=== PATIENT | male | born 1950 | race Caucasian/White ===

== ENCOUNTER 2025-05-15 08:18 | Inpatient (IN) | payer MEDICARE, OTHER ==
[~2025-05-15] VITALS: Ht 185.4 cm; Wt 97.4 kg
--- NOTE | 2025-05-15 08:33 | ELECTROCARDIOGRAPH REPORT ---
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
[2025-05-15 08:56] LABS: MEAN PLATELET VOLUME 8.9 FL (7.4-10.4); RED CELL DISTRIBUTION WIDTH 14.6 % (11.5-14.5)
[2025-05-15] MEDS ORDERED: SEMA2PEN SUBCUT (08:58)
[2025-05-15] MEDS ORDERED: ASPI81TA52 PO (08:58)
[2025-05-15] MEDS ORDERED: ATOR-2 PO (08:59)
[2025-05-15] MEDS ORDERED: CLOP75TA34 PO (08:59)
[2025-05-15] MEDS ORDERED: METO-395 PO (08:59)
[2025-05-15] MEDS ORDERED: SACU1TAB PO (09:00)
[2025-05-15] MEDS ORDERED: LEVO175T7 PO (09:03)
[2025-05-15] MEDS ORDERED: SODI650T29 PO (09:03)
[2025-05-15] MEDS ORDERED: EZET10TA80 PO (09:03)
[2025-05-15] MEDS ORDERED: FOLI0.4T6 PO (09:03)
[2025-05-15] MEDS ORDERED: CHOL500044 PO (09:04)
[2025-05-15] MEDS ORDERED: CYAN250010 PO (09:04)
--- NOTE | 2025-05-15 09:04 | RADIOLOGY REPORT ---
EXAM: DI CHEST,SINGLE VIEW Indication: CP Technique: Single frontal view of the chest was obtained Comparison: XR CHEST 1 VIEW on DOS: 01/03/25 FINDINGS: Lines and Tubes: None Lungs: Mild pulmonary edema. Trace right pleural effusion. Left costophrenic angle is collimated from field of view. No pneumothorax. Cardiomediastinal contours: Cardiomegaly. Bones: No acute osseous abnormality. IMPRESSION: Cardiomegaly with mild pulmonary edema. Trace right pleural effusion.
[2025-05-15] MEDS ORDERED: SODI10PO PO (09:05)
[2025-05-15] MEDS ORDERED: ALLO100T PO (09:05)
[2025-05-15 09:13] LABS: CREATININE 4.39 MG/DL (0.60-1.10); TOTAL CARBON DIOXIDE 24.0 MMOL/L (24-32); eCRCL 17 ML/MIN; eGFR 13 ML/MIN
--- NOTE | 2025-05-15 09:16 | Physician Documentation ---
Addendum CHIEF COMPLAINT/HPI: The patient is a 74-year-old male who underwent TAVR and stenting in December 2024 at [facility]. He reports that at that time his ejection fraction was between 40-45%. He has developed shortness of breath three days ago. He was seen at Dr. Cuellar's office by Geni yesterday and today. She attempted to increase his metoprolol 50 mg twice daily. He had 50 mg last night and again this morning. She saw him again today and did an echocardiogram which showed an ejection fraction of 10-15%. EKG revealed a tachycardia which she was not able to distinguish between AF RVR versus SVT. The patient is on Plavix and aspirin but no other blood thinners. He denies chest pain. REVIEW OF SYSTEMS: Constitutional: Denies chills, fatigue, fever, weight gain or weight loss. HEENT: Denies hearing loss, sinus pressure or visual changes. Respiratory: Shortness of breath Cardiovascular: Denies chest pain, pain while walking (claudication), edema or palpitations. Gastrointestinal: Denies abdominal pain, blood in stool, constipation, diarrhea, heartburn, loss of appetite, nausea or vomiting. Genitourinary: Denies painful urination (dysuria), excessive amount of urine (polyuria) or urinary frequency. Metabolic/Endocrine: Denies cold intolerance, heat intolerance, excessive thirst (polydipsia) or excessive hunger (polyphagia). Neurological: Denies dizziness, extremity numbness, extremity weakness, headaches, seizures or tremors. Psychiatric: Denies anxiety or depression. Integumentary: Denies breast discharge, breast lump, hives, mole change(s), rash or skin lesion. Musculoskeletal: Denies back pain, joint pain, joint swelling or neck pain. Hematologic: Denies easily bleeding, easily bruises, lymphedema or issues with blood clots. Immunologic: Denies food allergies or seasonal allergies. PHYSICAL EXAMINATION: Vitals and nursing note reviewed. Constitutional: General: Patient is awake, alert, oriented x 4 in no acute distress and well appearing. Speech is clear and lucid. Appearance: Normal appearance. Patient is not ill-appearing, toxic-appearing or diaphoretic. HENT: Head: Normocephalic and atraumatic. Mouth: Mucous membranes are moist. Pharynx: Oropharynx is clear. Eyes: General: No scleral icterus. Extraocular Movements: Extraocular movements intact. Pupils: Pupils are equal, round, and reactive to light. Neck: Supple, no Kernig or Brudzinski sign. Cardiovascular: Rate and Rhythm: Tachycardia. Heart sounds: No murmur heard. Pulmonary: Effort: No respiratory distress. Breath sounds: No wheezing, rhonchi or rales. Abdominal: General: There is no distension. Palpations: There is no fluid wave, hepatomegaly or mass. Tenderness: There is no abdominal tenderness. There is no guarding. Musculoskeletal: General: No swelling or deformity. Skin: Coloration: Skin is not jaundiced. Findings: No erythema or rash. Neurological: Mental Status: Patient is alert. MEDICAL DECISION MAKING: This 74-year-old man presents with shortness of breath, ejection fraction of 10- 15% and tachycardia. I did trial him with diltiazem 10 mg which did not slow him down. I will be starting amiodarone bolus and drip. He will require admission. Departure Disposition: ADMITTED INPATIENT Admitted to Inpatient Unit: to hospitalist Admission Level of Care: PCU with Tele Impression: Primary Impression: Shortness of breath Additional Impression: Tachycardia Condition: ANGELA Pinto MD May 15, 2025 09:16
[2025-05-15] MEDS: diltiazem 5mg/ml 5ml inj. IV ONE ×2 (09:36→10:16)
[2025-05-15 09:55] LABS: PRO BRAIN NATRIURETIC PEPTIDE > 30000 PG/ML (0-125)
[2025-05-15] MEDS ORDERED: potassium Cl 20 mEq SR tablet PO PRN ×2 (10:30)
[2025-05-15] MEDS ORDERED: ondansetron/PF 4mg/2ml inj IV PRN (10:30)
[2025-05-15] MEDS ORDERED: magnesium sulf-water 2g/50mL 50 ML IV PRN (10:30)
[2025-05-15] MEDS ORDERED: amiodarone 150mg/dext, iso-os 100 ML IV ONE (10:30)
[2025-05-15] MEDS ORDERED: magnesium sulf-water 4G/100mL 100 ML IV PRN (10:30)
[2025-05-15] MEDS ORDERED: amiodarone/D5 360MG/200ML BAG 200 ML IV SCH (10:30)
[2025-05-15] MEDS ORDERED: magnesium Cl slow-release 64mg tablet PO PRN (10:30)
[2025-05-15] MEDS ORDERED: potassium Cl 40MEQ/1/2NS 520ml 520 ML IV PRN (10:30)
--- NOTE | 2025-05-15 10:47 | ELECTROCARDIOGRAPH REPORT ---
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
[2025-05-15] MEDS: amiodarone 150mg/dext, iso-os 100 ML IV ONE (11:22)
[2025-05-15] MEDS: amiodarone/D5 360MG/200ML BAG 200 ML IV SCH (11:35)
[2025-05-15] MEDS: metoprolol tartrate 1mg/ml inj IV ONE (12:20)
--- NOTE | 2025-05-15 16:39 | CONSULTATION REPORT ---
History of Present Illness Providers to CC CC: MAGI KELLY MD ~ Reason for Admit\Admit Dx: Cardiology consultation Refering MD: Dr. Onofre History of Present Illness Patient with past medical history significant for severe aortic stenosis, coronary artery disease status post PCI to an unknown coronary artery January 2025. Also underwent TAVR at that time. Had longstanding chronic kidney disease stage 4, hypertension, hyperlipidemia. He has had systolic heart failure. States that his previous LVEF was around 40-45%. He has experienced a sudden onset of increased shortness for breath over the past three days. He went to his parts product analyst who did a stat echocardiogram. Found to have an LVEF of 10-15% and was sent to the hospital for further evaluation and management. Allergies: Coded Allergies: No Known Allergies (Unverified , 05/15/25) Home Medications Home Medications Active Reported Zyloprim* (Allopurinol) 100 Mg Tablet 1 Tab PO EVERY OTHER DAY Lokelma (Sodium Zirconium Cyclosilicate) 10 Gram Powd.pack 1 Pkt PO DAILY Vitamin D3 (Cholecalciferol (Vitamin D3)) 125 Mcg (5000 Unit) Tablet 1 Tab PO DAILY 30 Days Vitamin B12 (Cyanocobalamin (Vitamin B-12)) 2,500 Mcg Tablet 500 Mcg PO DAILY 30 Days Folic Acid* (Folic Acid) 0.4 Mg Tablet 1 Tab PO DAILY Levothyroxine Sodium 175 Mcg Tablet 1 Tab PO EVERY OTHER DAY every other day Antacid (Sodium Bicarbonate) 650 Mg Tablet 1 Tab PO TID Ezetimibe 10 Mg Tablet 1 Tab PO DAILY Entresto 24 mg-26 mg Tablet (Sacubitril/Valsartan) 24 Mg-26 Mg Tablet 1 Tab PO Q12H 30 Days Clopidogrel (Clopidogrel Bisulfate) 75 Mg Tablet 1 Tab PO DAILY 30 Days Do not stop medication unless instructed by prescriber. Metoprolol Succinate 25 Mg Tab.sr.24h 2 Tab PO BID Atorvastatin Calcium 80 Mg Tablet 1 Tab PO HS Aspirin EC (Aspirin) 81 Mg Tablet.dr 1 Tab PO DAILY 30 Days Ozempic (Semaglutide) 2 Mg/0.75 Ml (8 Mg/3 Ml) Pen.injctr 2 Mg SUBCUT MONDAY Past Medical History Medical History Comment Heart failure with mid-range ejection fraction around 45% previously Hypertension Hyperlipidemia Chronic kidney disease stage 4 Severe aortic stenosis status post TAVR Coronary artery disease status post PCI January 2025 on Plavix and aspirin--anatomy unknown but probable LAD Hepatitis-C treated Diabetes mellitus Ozempic Past Surgical History Surgical History Comment TAVR procedure PCI Orthopedic surgery Past Social History Social History Comment Lives with . Independent daily living. Physical Exam Last Vital Signs Recorded: RN Vital Signs have been reviewed: Yes, Temperature: 98.4, Source: Oral, Heart Rate: 112, Respiratory Rate: 16, BP: 127/103, Pulse Oximetry: 98, Weight: 97.400 Physical Exam General: Awake, alert, oriented. No apparent distress Respiratory: Lungs are clear end diminished in the bases bilaterally. Speaking in full sentences. Chest: Normal shape and size. No accessory muscle use. Cardiovascular: Irregularly irregular. Tachycardic. Gastrointestinal: Abdomen is soft. Nontender to palpation. Bowel sounds present. Extremities: No lower extremity edema, cyanosis or clubbing. Neurologic: Alert and oriented x4. Nonfocal Psychiatric: Normal mood and affect. Skin: Normal color. Warm and dry. Review of Systems Constitutional: Denies: chills, fever Respiratory: Reports: shortness of breath, SOB with exertion Cardiovascular: Reports: no symptoms reported; Denies: chest pain, left arm pain, syncope Gastrointestinal: Denies: abdominal pain, nausea, vomiting Neurological: Reports: no symptoms reported Musculoskeletal: Reports: no symptoms reported Integumentary: Reports: no symptoms reported Allergic/Immunologic: Reports: no symptoms reported Hematologic/Lymphatic: Reports: no symptoms reported Endocrine: Reports: no symptoms reported Psychiatric: Reports: no symptoms reported Results EKG EKG Initial EKG looks like atrial flutter with rapid ventricular response. Now telemetry atrial fibrillation with rapid ventricular response. Echocardiogram Echocardiogram Preliminary echocardiogram done at Dr. Leelee Mccray's office shows an LVEF of 10-15%. TAVR valve is well seated with no perivalvular leak. Ascending aorta measures 4.9 cm. RV [id number] reduced systolic function. Normal size. RVSP 42 mm of mercury. Diagram Lab Result Diagram: 05/15/2584205/15/25842 Assessment/Plan Additional Plan Patient presented with increased shortness for breath. The following is his problem list: Acute on chronic heart failure with reduced ejection fraction. 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 We will increase as needed for heart rate control. --on Entresto as an outpatient Atrial fibrillation with rapid ventricular response --on an amiodarone drip --rate control as noted above --that is Vasc is four --recommend Eliquis 5 mg b.i.d. Chronic kidney disease with the acute kidney injury Per baseline creatinine about 3.5. --careful monitoring of History of coronary artery disease --continue Plavix, aspirin, statin Diabetes mellitus type 2 On Ozempic Hypothyroidism --on levothyroxine --TSH 0.[address] Nelson Luciano who is in agreement with this plan. Supervising MD Supervising Physician: ILANA Bailey NP May 15, 2025 16:39
[2025-05-15 18:00] VITALS: BP 137/103; PULSE 123; RESP 11; TEMP 97.8; O2SAT 96
[2025-05-15 20:00] VITALS: BP 159/120; PULSE 123; RESP 14; RESP 25; O2SAT 96
--- NOTE | 2025-05-15 20:00 | HISTORY AND PHYSICAL ---
History & Physical Providers to CC ~ History of Present Illness Reason for Admit\Complaint: Abnormal echocardiogram results History of Present Illness The patient is a 74-year-old male who underwent TAVR and stenting in December 2024 at [facility]. He reports that at that time his ejection fraction was between 40-45%. He has developed shortness of breath three days ago. He was seen at Dr. Cuellar's office by Geni yesterday and today. She attempted to increase his metoprolol 50 mg twice daily. He had 50 mg last night and again this morning. She saw him again today and did an echocardiogram which showed an ejection fraction of 10-15%. EKG revealed a tachycardia which she was not able to distinguish between AF RVR versus SVT. The patient is on Plavix and aspirin but no other blood thinners. He denies chest pain. Patient admitted that he does drink vodka on regular basis denied use of any tobacco or any recreational drugs. As per patient's patient has chronic kidney disease which is not new last GFR was 16. Patient denies any other symptoms no other aggravating or exacerbating factors Allergies: Coded Allergies: No Known Allergies (Unverified , 05/15/25) Home Medications Home Medications Active Reported Zyloprim* (Allopurinol) 100 Mg Tablet 1 Tab PO EVERY OTHER DAY Lokelma (Sodium Zirconium Cyclosilicate) 10 Gram Powd.pack 1 Pkt PO DAILY Vitamin D3 (Cholecalciferol (Vitamin D3)) 125 Mcg (5000 Unit) Tablet 1 Tab PO DAILY 30 Days Vitamin B12 (Cyanocobalamin (Vitamin B-12)) 2,500 Mcg Tablet 500 Mcg PO DAILY 30 Days Folic Acid* (Folic Acid) 0.4 Mg Tablet 1 Tab PO DAILY Levothyroxine Sodium 175 Mcg Tablet 1 Tab PO EVERY OTHER DAY every other day Antacid (Sodium Bicarbonate) 650 Mg Tablet 1 Tab PO TID Ezetimibe 10 Mg Tablet 1 Tab PO DAILY Entresto 24 mg-26 mg Tablet (Sacubitril/Valsartan) 24 Mg-26 Mg Tablet 1 Tab PO Q12H 30 Days Clopidogrel (Clopidogrel Bisulfate) 75 Mg Tablet 1 Tab PO DAILY 30 Days Do not stop medication unless instructed by prescriber. Metoprolol Succinate 25 Mg Tab.sr.24h 2 Tab PO BID Atorvastatin Calcium 80 Mg Tablet 1 Tab PO HS Aspirin EC (Aspirin) 81 Mg Tablet.dr 1 Tab PO DAILY 30 Days Ozempic (Semaglutide) 2 Mg/0.75 Ml (8 Mg/3 Ml) Pen.injctr 2 Mg SUBCUT MONDAY Past Medical History Past Medical History Heart failure with mid-range ejection fraction around 45% previously Hypertension Hyperlipidemia Chronic kidney disease stage 4 Severe aortic stenosis status post TAVR Coronary artery disease status post PCI January 2025 on Plavix and aspirin--anatomy unknown but probable LAD Hepatitis-C treated Diabetes mellitus Ozempic Past Surgical History Surgical History Comment TAVR procedure PCI Orthopedic surgery Past Social History Social History Comment Lives with . Independent daily living. ROS ROS Review of system as mentioned above in HPI rest of the review of system unremarkable Exam Vitals: Vital Signs Date Time Temp Pulse Resp B/P (MAP) Pulse Ox O2 Delivery O2 Flow Rate FiO2 05/15/25 14:57 112 16 127/103 (111) 98 0 05/15/25 13:20 98.4 General: General-patient not in any acute distress, alert awake oriented, chronically ill-appearing HEENT-atraumatic normocephalic, neck supple without elevated JVD, no thyromegaly or carotid bruit. No lymphadenopathy bilaterally. Eyes-no icterus or pallor seen in eyes Chest-decreased breath sounds to auscultation bilaterally over 2/3 of the lung, we will do listen lung sounds over upper lungs. breathing nonlabored no tachypnea, no wheezing, no crepitation, no crackles. Heart-S1-S2 normal, regular heart rate no murmur Abdomen bowel sounds positive on auscultation, soft nondistended nontender no guarding, no rigidity Skin no active skin rash Neurology-grossly intact, nonfocal alert awake oriented Extremity- trace pedal edema able to move all 4 extremities Psychiatry - patient is not confused or agitated cooperated during physical examination Diagnostic Data Last Recorded Lab Results: 05/15/2584205/15/25842 Additional Plan The patient is a 74-year-old male who underwent TAVR and stenting in December 2024 at [facility]. He reports that at that time his ejection fraction was between 40-45%. He has developed shortness of breath three days ago. He was seen at Dr. Cuellar's office by Geni yesterday and today. She attempted to increase his metoprolol 50 mg twice daily. He had 50 mg last night and again this morning. She saw him again today and did an echocardiogram which showed an ejection fraction of 10-15%. # acute on chronic systolic congestive heart failure- Cardiology consultation requested from Dr. Pablo Luciano and Karina evaluated the patient today. Appreciate cardiology input for this patient's case, they recommended to start metoprolol succinate 100 mg once daily. He is on Entresto in outpatient setting # atrial fibrillation with RVR-on amiodarone drip we will continue to monitor heart rate and plan to start Eliquis 5 mg twice a day # coronary artery disease on Plavix aspirin and statin in outpatient setting # acute kidney injury on chronic kidney disease stage 4- patient follows with Dr. Dominguez in outpatient setting. Nephrology consultation requested from Dr. Elliott who we will plan to see the patient tomorrow # type 2 diabetes- hemoglobin A1c ordered, on Ozempic in outpatient setting which we are going to hold. Started on hypo and hyperglycemic protocol # hypothyroidism-on levothyroxine TSH 0.10. Patient needs lower dose of levothyroxine and repeat free TSH testing needed in 6-8 weeks in outpatient setting. We will continue to monitor patient's labs and vitals closely . Needs physical therapy evaluation before discharge . Code status discussed with the patient patient wishes full code Time spent in discussing code status 16 minutes. We will do home medication reconciliation once updated in electronic by nursing staff or pharmacist. Further management depending on response to treatment and as per recommendation by Nephrology and activity therapy specialist I will continue to follow patient in a.m. Date of Service: May 15, 2025 Billing Provider: KEENA ROBLES MD Common Visit Codes: 14155-GNDIXJO INP/OBS CARE (HIGH) Secondary Visit Codes: 90176-KXLSAOLO CARE PLAN 30 MINUTES KEENA ROBLES MD May 15, 2025 20:00
[2025-05-15] MEDS ORDERED: glucagon, human recombinant 1mg kit SUBCUT PRN (20:05)
[2025-05-15] MEDS ORDERED: dextrose 50%-water 50ml dispensing syringe IV PRN ×2 (20:05)
[2025-05-15] MEDS ORDERED: DEXTROSE 15 GM of carb/4 tabs (each vial/BOTTLE has 4 tablets) PO PRN ×2 (20:05)
--- NOTE | 2025-05-15 20:20 | PROGRESS NOTE ---
Progress Note Dictate Providers to CC ~ Progress Note: Please see dictated note. Pt and very well known to me, she was my prior admitting officer and I've followed him for 25+ years. STEVEN (?) due to decreased perfusion to rate-related Afib LV dysfunction. Dr Franklin Luciano and Polo mobley. Control Afib f/u spot labs and echocor. Antibiotic Ordered?: No Objective Vitals Vital Signs Date Time Temp Pulse Resp B/P (MAP) Pulse Ox O2 Delivery O2 Flow Rate FiO2 05/15/25 14:57 112 16 127/103 (111) 98 0 05/15/25 13:20 98.4 Lab Results: 05/15/25 0843 05/15/25 0843 SHAZIA BAIN MD May 15, 2025 20:20
[2025-05-15] MEDS: heparin, porcine 5000 units/ml vial SQ SCH (20:44)
[2025-05-15] MEDS: metoprolol succinate 25mg (24-HOUR) SR. Tablet PO SCH (20:44)
[2025-05-15] MEDS: INSULIN LISPRO 100 UNIT/ML INSULN.PEN MULTI-DOSE SQ SCH (21:00)
[2025-05-15 22:00] VITALS: BP 131/101; PULSE 123; RESP 17; TEMP 97.8; O2SAT 97
[2025-05-16] VITALS (10 sets, daily range): BP systolic 117–138; BP diastolic 92–109; PULSE 113–121; RESP 17–22; TEMP 97.4–97.8; O2SAT 95–98
[2025-05-16 04:32] LABS: OSMOLALITY UA 257.0 MOSM/K (50-1400)
[2025-05-16 04:38] LABS: LEUKOCYTE ESTERASE ,URINE NEGATIVE (Neg); NITRITES, URINE NEGATIVE (Neg); OCCULT BLOOD,URINE SMALL (Neg)
[2025-05-16 04:41] LABS: CREATININE,URINE RANDOM 43.0 MG/DL; TOTAL PROTEIN,URINE RANDOM 233.2 MG/DL; UA UREA RANDOM 298.0 MG/DL
[2025-05-16 04:43] LABS: UA COLLECTION TYPE NON-SPECIFIED
[2025-05-16 04:44] LABS: AMORPHOUS URATES 1+; SQUAMOUS EPITHELIAL CELL,UR NONE SEEN /LPF (FEW)
[2025-05-16] MEDS: heparin, porcine 5000 units/ml vial SQ SCH (06:13)
[2025-05-16 07:44] LABS: MEAN PLATELET VOLUME 8.8 FL (7.4-10.4); RED CELL DISTRIBUTION WIDTH 14.1 % (11.5-14.5)
[2025-05-16] MEDS: SODIUM ZIRCONIUM CYCLOSILICATE 10 GM POWD.PACK PO SCH (07:48)
[2025-05-16] MEDS: sacubitril/valsartan 24mg-26mg tablet PO SCH (07:48)
[2025-05-16] MEDS: aspirin 81mg, enteric-coated 1 TAB TABLET.DR PO SCH (07:48)
[2025-05-16 07:58] LABS: CREATININE 4.29 MG/DL (0.60-1.10); TOTAL CARBON DIOXIDE 21.8 MMOL/L (24-32); eCRCL 18 ML/MIN; eGFR 14 ML/MIN
--- NOTE | 2025-05-16 14:21 | CONSULTATION REPORT - RESIDENT ---
Consult Providers to CC Resident Creating Document: CHACORTA TONEY RES History of Present Illness Reason for Admit\Complaint: CHF exacerbation History of Present Illness This is a 74-year-old patient with a history of severe aortic stenosis, CAD s/p PCI in 01/29, TAVR, CHF with mid-range ejection fraction CKD stage 4, hypertension, hyperlipidemia, diabetes mellitus. He is a patient of Dr. Cuellar, his previous ejection fraction was about 40-45%, experienced sudden onset of increased shortness of breadth with a past three days, he went to Dr. Cuellar's office and got a stat echocardiogram done which showed an ejection fraction of 10-15% and was sent to the hospital for further evaluation. He is a known CKD patient, follows up at [facility]. His most recent labs from [facility], collected on 05/08/2025 showed a creatinine of 3.75, BUN 39, GFR 16, sodium 144, potassium 4.2, bicarb 21, phosphorus 3.8, calcium 9.0, albumin 3.6, total urine protein 861.2, UPCR 6282, hemoglobin 13.0. STEVEN likely due to decreased perfusion to rate-related Afib LV dysfunction. During this admission creatinine is 4.39, BUN 53, bicarb 21.8, normal potassium. Allergies: Coded Allergies: No Known Allergies (Unverified , 05/15/25) Home Medications Home Medications Active Reported Zyloprim* (Allopurinol) 100 Mg Tablet 1 Tab PO EVERY OTHER DAY Lokelma (Sodium Zirconium Cyclosilicate) 10 Gram Powd.pack 1 Pkt PO DAILY Vitamin D3 (Cholecalciferol (Vitamin D3)) 125 Mcg (5000 Unit) Tablet 1 Tab PO DAILY 30 Days Vitamin B12 (Cyanocobalamin (Vitamin B-12)) 2,500 Mcg Tablet 500 Mcg PO DAILY 30 Days Folic Acid* (Folic Acid) 0.4 Mg Tablet 1 Tab PO DAILY Antacid (Sodium Bicarbonate) 650 Mg Tablet 1 Tab PO TID Ezetimibe 10 Mg Tablet 1 Tab PO DAILY Entresto 24 mg-26 mg Tablet (Sacubitril/Valsartan) 24 Mg-26 Mg Tablet 1 Tab PO Q12H 30 Days Clopidogrel (Clopidogrel Bisulfate) 75 Mg Tablet 1 Tab PO DAILY 30 Days Do not stop medication unless instructed by prescriber. Metoprolol Succinate 25 Mg Tab.sr.24h 2 Tab PO BID Atorvastatin Calcium 80 Mg Tablet 1 Tab PO HS Aspirin EC (Aspirin) 81 Mg Tablet.dr 1 Tab PO DAILY 30 Days Ozempic (Semaglutide) 2 Mg/0.75 Ml (8 Mg/3 Ml) Pen.injctr 2 Mg SUBCUT MONDAY Past Medical History Past Medical History Heart failure with mid-range ejection fraction around 45% previously Hypertension Hyperlipidemia Chronic kidney disease stage 4 Severe aortic stenosis status post TAVR Coronary artery disease status post PCI January 2025 on Plavix and aspirin--anatomy unknown but probable LAD Hepatitis-C treated Diabetes mellitus Ozempic Past Surgical History Surgical History Comment TAVR procedure PCI Orthopedic surgery Past Social History Social History Comment Lives with . Independent daily living. Exam Vitals: Vital Signs Date Time Temp Pulse Resp B/P (MAP) Pulse Ox O2 Delivery O2 Flow Rate FiO2 05/16/25 11:00 97.4 117 20 117/92 (100) 97 Room Air 05/15/25 20:00 0.0 General: General: Awake, alert, oriented. No apparent distress Respiratory: Lungs are clear end diminished in the bases bilaterally. Speaking in full sentences. Chest: Normal shape and size. No accessory muscle use. Cardiovascular: Irregularly irregular. Tachycardic. Gastrointestinal: Abdomen is soft. Nontender to palpation. Bowel sounds present. Extremities: No lower extremity edema, cyanosis or clubbing. Neurologic: Alert and oriented x4. Nonfocal Psychiatric: Normal mood and affect. Skin: Normal color. Warm and dry. Diagnostic Data Last Recorded Lab Results: 05/16/25 0647 05/16/25 0647 Diagnostic Data: Karina's input much appreciated. We need to control rate and get into sinus for atrial kick. I ok'd entresto for CHF and hopefully to reduce proteinuria. Spot studies urea urine/serum 298/53 = 6:1 creat u/s = 43/4.29 = 10:1 Cur/Ccr = .6 = not prerenal. urine pro/cr = 233/43 = 7:1 x estimated Cr production 1.5 gm = 10.5 gm = massive. If he remains in Afib, consider amiodarone. Additional Plan Assessment This is a 74-year-old patient with a history of severe aortic stenosis, CAD s/p PCI in 01/29, TAVR, CHF with mid-range ejection fraction CKD stage 4, hypertension, hyperlipidemia, diabetes mellitus. He is a patient of Dr. Cuellar, his previous ejection fraction was about 40-45%, experienced sudden onset of increased shortness of breadth with a past three days, he went to Dr. Cuellar's office and got a stat echocardiogram done which showed an ejection fraction of 10-15% and was sent to the hospital for further evaluation. He is a known CKD patient, follows up at [facility]. His most recent labs from [facility], collected on 05/08/2025 showed a creatinine of 3.75, BUN 39, GFR 16, sodium 144, potassium 4.2, bicarb 21, phosphorus 3.8, calcium 9.0, albumin 3.6, total urine protein 861.2, UPCR 6282, hemoglobin 13.0. During this admission creatinine is 4.39, BUN 53, bicarb 21.8, normal potassium. STEVEN likely due to decreased perfusion to rate-related Afib LV dysfunction. Plan STEVEN on CKD stage 4. Likely secondary to decreased perfusion from rate related AFib left ventricular dysphonia Creatinine today 4.29, BUN 53, bicarb 21.8, Baseline creatinine, 3.75 on 05/08/2025 Urine sodium 65, Fe urea- 56.1 . Random urine protein 233.2. Plan Monitor daily urine electrolytes Strict I&Os Daily weight measurements. Avoid bilateral upper extremity IV lines, no Bean's, no PICC line Acute on chronic CHF exacerbation with reduced ejection fraction likely secondary to rate related cardiomyopathy. Atrial fibrillation with rapid ventricular response On metoprolol succinate 100 mg On amiodarone drip Eliquis 5 mg b.i.d. History of CAD s/p PCI Continue aspirin, statin, Plavix. Chacorta toney M.D PGY2 Nephrology Resident Date of Service: May 16, 2025 Billing Provider: SHAZIA BAIN MD, PRAVAHIKA, RES May 16, 2025 14:21 SHAZIA BAIN MD May 16, 2025 23:16
--- NOTE | 2025-05-16 17:39 | PROGRESS NOTE ---
Progress Note Cardiology Providers to CC ~ Subjective Subjective Patient is having shortness for breath when he lays in bed that feels well in a chair. He also denies significant dyspnea on exertion when walking in the hallways. Heart rate remains elevated. Atrial flutter on telemetry. Objective Result Diagram: 05/16/2564605/16/25646 Objective General: Awake, alert, oriented. No apparent distress Neck: Supple. Normal range of motion. Respiratory: Lungs are clear diminished in the bases bilaterally. Chest: Normal shape and size. No accessory muscle use. Cardiovascular: Irregularly irregular. Tachycardic. S1-S2. No murmur, gallop, rub. Extremities: No lower extremity edema, cyanosis or clubbing. Neurologic: Alert and oriented x4. Nonfocal Psychiatric: Normal mood and affect. Skin: Normal color. Warm and dry. Problem\Assessment\Plan Additional Plan Patient presented with increased shortness for breath. The following is his problem list: Acute on chronic heart failure with reduced ejection fraction. 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 We will increase to 100 mg t.i.d.. May increase up to 400 mg total per day --continue Entresto --avoid SGLT2i/MRA given kidney function --he continues to have significant dyspnea. Therefore, continue Lasix. Strict intake and output. Discussed with nursing. Atrial fibrillation with rapid ventricular response --on an amiodarone drip --rate control as noted above --that is Vasc is four --recommend Eliquis 5 mg b.i.d. Chronic kidney disease with the acute kidney injury Per baseline creatinine about 3.5. Discussed with on-call occupational therapist assistants Dr. Elliott. Appreciate his recommendations. History of coronary artery disease with recent PCI of the presumed LAD --continue Plavix, aspirin, statin Diabetes mellitus type 2 On Ozempic Hypothyroidism --on levothyroxine --TSH 0.[address] Nelson Luciano who is in agreement with this plan. We will up titrate metoprolol for rate control. If any further cardiology needs please contact Dr. Luciano directly for weekend coverage. Supervising Physician: ILANA Bailey NP May 16, 2025 17:39
[2025-05-16] MEDS: amiodarone/D5 360MG/200ML BAG 200 ML IV SCH (17:40)
[2025-05-16] MEDS: metoprolol succinate 25mg (24-HOUR) SR. Tablet PO SCH (19:32)
--- NOTE | 2025-05-16 19:55 | PROGRESS NOTE ---
Daily Progress Note Providers to CC ~ Antibiotic Timeout Antibiotic Ordered?: No Subjective Patient was feeling short of breaths and not well when he was trying to sit on the edge of the bed. present at bedside Objective Vital Signs Date Time Temp Pulse Resp B/P (MAP) Pulse Ox O2 Delivery O2 Flow Rate FiO2 05/16/25 15:00 97.5 113 22 121/95 (104) 97 05/16/25 11:00 Room Air 05/15/25 20:00 0.0 Result Diagram: 05/16/25 0647 05/16/25 0647 General-patient not in any acute distress, alert awake oriented, chronically ill-appearing HEENT-atraumatic normocephalic, neck supple without elevated JVD, no thyromegaly or carotid bruit. No lymphadenopathy bilaterally. Eyes-no icterus or pallor seen in eyes Chest-decreased breath sounds to auscultation bilaterally over 2/3 of the lung, we will do listen lung sounds over upper lungs. breathing nonlabored no tachypnea, no wheezing, no crepitation, no crackles. Heart-S1-S2 normal, regular heart rate no murmur Abdomen bowel sounds positive on auscultation, soft nondistended nontender no guarding, no rigidity Skin no active skin rash Neurology-grossly intact, nonfocal alert awake oriented Extremity- trace pedal edema able to move all 4 extremities Psychiatry - patient is not confused or agitated cooperated during physical examination Problem\Assessment\Plan The patient is a 74-year-old male who underwent TAVR and stenting in December 2024 at [facility]. He reports that at that time his ejection fraction was between 40-45%. He has developed shortness of breath three days ago. He was seen at Dr. Cuellar's office by Geni yesterday and today. She attempted to increase his metoprolol 50 mg twice daily. He had 50 mg last night and again this morning. She saw him again today and did an echocardiogram which showed an ejection fraction of 10-15%. # acute on chronic systolic congestive heart failure- Cardiology consultation requested from Dr. Pablo Luciano and Karina evaluated the patient today. Appreciate cardiology input for this patient's case, they recommended to start metoprolol succinate 100 mg t.i.d. and Entresto # atrial fibrillation with RVR-on amiodarone drip we will continue to monitor heart rate and plan to start Eliquis 5 mg twice a day # coronary artery disease on Plavix aspirin and statin in outpatient setting # acute kidney injury on chronic kidney disease stage 4- patient follows with Dr. Dominguez in outpatient setting. Nephrology consultation requested from Dr. Elliott who evaluated the patient today, we will follow the recommendation # type 2 diabetes- hemoglobin A1c ordered, on Ozempic in outpatient setting which we are going to hold. Started on hypo and hyperglycemic protocol # hypothyroidism-on levothyroxine TSH 0.10. Patient needs lower dose of levothyroxine and repeat free TSH testing needed in 6-8 weeks in outpatient setting. # Code status discussed with the patient patient wishes full code We will continue to monitor patient's labs and vitals closely . Needs physical therapy evaluation before discharge . home medication reconciliation once updated in electronic records. Further management depending on response to treatment and as per recommendation by Nephrology and control systems specialist I will continue to follow patient in a.m. Date of Service: May 16, 2025 Billing Provider: KEENA ROBLES MD Common Visit Codes: [id number] INP/OBS CARE(HIGH) KEENA ROBLES MD May 16, 2025 19:55
[2025-05-16 23:18] LABS: CREATININE,URINE RANDOM 39.0 MG/DL; UA UREA RANDOM 238.0 MG/DL
[2025-05-16 23:33] LABS: OSMOLALITY UA 199.0 MOSM/K (50-1400)
[2025-05-17] VITALS (21 sets, daily range): BP systolic 104–151; BP diastolic 79–115; PULSE 67–113; RESP 7–25; TEMP 97–99; O2SAT 95–100
[2025-05-17 06:54] LABS: MEAN PLATELET VOLUME 8.8 FL (7.4-10.4); RED CELL DISTRIBUTION WIDTH 14.3 % (11.5-14.5)
--- NOTE | 2025-05-17 06:56 | CONSULTATION ---
DATE OF CONSULTATION: 05/15/2025 DICTATING PHYSICIAN: Homero Elliott MD RENAL AND INTENSIVE CARE CONSULTATION REASON FOR CONSULTATION: Chronic glomerulonephritis. HISTORY OF PRESENT ILLNESS: He had hepatitis C that responded very well to treatment with improvement in renal function. Once I finally found out that he was in the hospital and had been seen by Dr. Cuellar's nurse practitioner, Geni and Dr. Meyers's, nurse practitioner, Karina, I talked at length with the patient's , Michael. Pertinent information includes that he had a TAVR in 01/2025. That went well. Creatinine was 3.25 at that time. He had coronary stents at [facility] and in 03/2025 his ejection fraction went from 30 to 45. He had more trouble recently where he became progressively more short of breath and woke up very exhausted and short of breath at night. Creatinine had gone from 3.25 to the current 4.39 with BUN 53. He has had no difficulty voiding or outlet symptoms. EF went from 30 to 45 in March of last year to 15% now, which has his Michael very terrified. He has had hypertension, treated with diltiazem, amiodarone for atrial fibrillation, metoprolol, which has been significantly increased, and he had an echocardiogram by Dr. Cuellar. Atrial fibrillation had a rate of 130 down to 122 with EF dropping from 30 to 45 down to 15. Cultures are negative. He has no bladder outlet symptoms and there is no recorded intake and output. Pulse rate is 105 up to 112, blood pressure 127/73, respirations 16. Chest x-ray has cardiomegaly with mild pulmonary edema, trace right pleural effusion. BUN 53, creatinine 4.39, electrolytes in good order, albumin 3.2, globulin 3.7. TSH is 0.1, which sounds to me to be a little on the low side. Hematocrit 40.6, white count 9000. We do not have a urinalysis or any other studies available. I strongly suspect he had acute atrial fibrillation with rapid response, which caused acute LV dysfunction on a demand ischemia basis. His renal function has worsened a bit with that. The BNP of 30,000 is worrisome. He and his Teresa are both working on getting him lined up for transplant. I will get spot urine studies and CT abdomen and pelvis to make sure there is nothing else going on. We should check post void residual and see how his heart responds to control of his ventricular rate. Homero Elliott MD TID: [id number] RECEIPT: [id number] XIOMY/ABRAHAM
[2025-05-17 06:58] LABS: CREATININE 4.48 MG/DL (0.60-1.10); TOTAL CARBON DIOXIDE 23.8 MMOL/L (24-32); eCRCL 17 ML/MIN; eGFR 13 ML/MIN
--- NOTE | 2025-05-17 10:51 | PROGRESS NOTE ---
Progress Note Dictate Providers to CC ~ Progress Note: 45 minutes spent covering tachycardia related cardiac hit, nephrotic syndrome, CKD four slightly worse after the episodes of atrial fibrillation, and what to do if we can not get him into sinus. Discussed with Dr. Luciano. It seems we have given him a fair trial of metoprolol, statins, Entresto with him still in atrial fib with a rate of 116 and shortness of breath at rest with chest pressure. I would appreciate his consideration of possibly a RUPALI to profile his left atrium for cardioversion and then cardioversion ROS anticoagulation for a period of time before that. His overall renal function has been a proximally this level CKD 4-5 for years but his nephrosis seems much heavier estimated at 8 g of proteinuria. The Entresto and statin at the appropriate management for that. They are interested in [facility] as there referral for pretransplant evaluation. I am fairly sure they would want the cardiac function better before contemplating actually a transplant. If blood pressure tolerates we could consider adding lisinopril to double dose efforts to reduce the proteinuria. I think his episodes of shortness of breath reflect the cardiac hit and the persistent tachycardia. His albumin is at a level that increases his risk for pulmonary emboli and DVT and sepsis. If there is not a cardiac contraindication I would consider putting him on Eliquis 2.5 mg b.i.d. eventually going to five b.i.d.. Antibiotic Ordered?: No Subjective Subjective Episodes of chest heaviness and shortness of breath at rest. They were at [facility] for three days with nothing down before coming here and are fairly anxious about what needs to be done. At this EF I presume he will need the vest monitoring for a month and then probably a repeat echocardiogram and possibly AICD. Objective Vitals Vital Signs Date Time Temp Pulse Resp B/P (MAP) Pulse Ox O2 Delivery O2 Flow Rate FiO2 05/17/25 06:30 110 05/17/25 06:00 97.2 17 117/92 (100) 98 Room Air 05/16/25 20:00 0.0 Lab Results: 05/17/25 0613 05/17/25 0613 SHAZIA BAIN MD May 17, 2025 10:51
[2025-05-17] MEDS: fentaNYL/PF 50MCG/1 ML 2ML syringe IV STA (11:46)
[2025-05-17] MEDS: MIDAZolam 1 MG/ML 5ML VIAL IV STA (11:47)
--- NOTE | 2025-05-17 12:06 | PROCEDURE NOTE CC ---
Procedure Note Providers to CC CC: MAGI KELLY MD ~ Planned Procedure RUPALI and Cardioversion Description Planned Procedure RUPALI and Cardioversion Indications Symptomatic Atrial Fibrillation Post Operative Dx: Same Type of Anesthesia Moderate Sedation. Description RUPALI was performed confirming absence of left atrial appendage thrombus. The appropriate time-out procedure was performed including proper identification of the patient, physician, procedure, documentation, and there were no safety issues identified. The patient participated actively in this. After sedation was achieved, the patient was placed in the supine position and hands free patches were placed on their chest in the AP-lateral position. 1 synchronized cardioversion was provided at 200 Joules with conversion to normal sinus rhythm. This was confirmed on EKG. Complication: None The patient tolerated the procedure well without complications. --d/c ASA --Start Eliquis 5mg BId --Change metop XL to 100mg BID --Transition to oral Amio, 200mg QD given already loaded ARNIE LUKE MD May 17, 2025 12:06
--- NOTE | 2025-05-17 19:16 | PROGRESS NOTE ---
Daily Progress Note Providers to CC ~ Antibiotic Timeout Antibiotic Ordered?: No Subjective Patient was seen in presence of his today and discuss patient's current updated lab results. was not happy why we are not giving patient Ozempic which he was getting in outpatient setting? Levothyroxine restarted. Patient was also evaluated and followed by Nephrology and Cardiology team. Not much improvement in kidney function in labs. Dr. Pablo Luciano did RUPALI and cardioversion today and his heart rate converted back to normal sinus rhythm. Discontinued aspirin started on Eliquis 5 mg twice daily, change metoprolol XL 200 mg b.i.d. in oral amiodarone started. Objective Vital Signs Date Time Temp Pulse Resp B/P (MAP) Pulse Ox O2 Delivery O2 Flow Rate FiO2 05/17/25 16:00 70 15 104/81 (89) 05/17/25 15:00 97.8 95 Room Air 05/17/25 12:55 0.0 Result Diagram: 05/17/2561205/17/25612 General-patient not in any acute distress, alert awake oriented, chronically ill-appearing HEENT-atraumatic normocephalic, neck supple without elevated JVD, no thyromegaly or carotid bruit. No lymphadenopathy bilaterally. Eyes-no icterus or pallor seen in eyes Chest-decreased breath sounds to auscultation bilaterally over 2/3 of the lung, we will do listen lung sounds over upper lungs. breathing nonlabored no tachypnea, no wheezing, no crepitation, no crackles. Heart-S1-S2 normal, regular heart rate no murmur Abdomen bowel sounds positive on auscultation, soft nondistended nontender no guarding, no rigidity Skin no active skin rash Neurology-grossly intact, nonfocal alert awake oriented Extremity- trace pedal edema able to move all 4 extremities Psychiatry - patient is not confused or agitated cooperated during physical examination Problem\Assessment\Plan The patient is a 74-year-old male who underwent TAVR and stenting in December 2024 at [facility]. He reports that at that time his ejection fraction was between 40-45%. He has developed shortness of breath three days ago. He was seen at Dr. Cuellar's office by Geni yesterday and today. She attempted to increase his metoprolol 50 mg twice daily. He had 50 mg last night and again this morning. She saw him again today and did an echocardiogram which showed an ejection fraction of 10-15%. # acute on chronic systolic congestive heart failure- Cardiology consultation requested from Dr. Pablo Luciano and Karina evaluated the patient today. Appreciate cardiology input for this patient's case, they recommended to start metoprolol succinate 100 mg t.i.d. and Entresto # atrial fibrillation with RVR-on amiodarone drip we will continue to monitor heart rate and plan to start Eliquis 5 mg twice a day Dr. Pablo Luciano did RUPALI and cardioversion today and his heart rate converted back to normal sinus rhythm. Discontinued aspirin started on Eliquis 5 mg twice daily, change metoprolol XL 200 mg b.i.d. in oral amiodarone started. # coronary artery disease on Plavix aspirin and statin in outpatient setting # acute kidney injury on chronic kidney disease stage 4- patient follows with Dr. Dominguez in outpatient setting. Nephrology consultation requested from Dr. Elliott who evaluated the patient today, we will follow the recommendation. Not much improvement in kidney function in labs. # type 2 diabetes- hemoglobin A1c ordered, on Ozempic in outpatient setting which we are going to hold. Started on hypo and hyperglycemic protocol # hypothyroidism-on levothyroxine TSH 0.10. Patient needs lower dose of levothyroxine and repeat free TSH testing needed in 6-8 weeks in outpatient setting.Levothyroxine restarted on lower dose # Code status discussed with the patient patient wishes full code We will continue to monitor patient's labs and vitals closely . Needs physical therapy evaluation before discharge . home medication reconciliation once updated in electronic records. Further management depending on response to treatment and as per recommendation by Nephrology and it technical specialist I will continue to follow patient in a.m. Date of Service: May 17, 2025 Billing Provider: KEENA ROBLES MD Common Visit Codes: [id number] INP/OBS CARE(HIGH) KEENA ROBLES MD May 17, 2025 19:16
[2025-05-17] MEDS: metoprolol succinate 25mg (24-HOUR) SR. Tablet PO SCH (20:37)
[2025-05-17 21:15] LABS: CREATININE,URINE RANDOM 76.0 MG/DL; UA UREA RANDOM 355.0 MG/DL
[2025-05-17 21:17] LABS: OSMOLALITY UA 244.0 MOSM/K (50-1400)
--- NOTE | 2025-05-17 23:19 | CARDIOLOGY REPORT ---
APPROVED REPORT EXAM: Limited Transesophageal echocardiogram with color flow Doppler and Synchronized Cardioversion. Patient Location: [address] Blood Pressure: 139/102 mmHg Heart Rate: 106-111 bpm Rhythm: Atrial Fibrillation with frequent episodes of Atrial Flutter Indications EVALUATE LA APPENDAGE PRE-CARDIOVERSION Acute on Chronic HF with reduced EF LVEF Previously 45%, now reduced to 10-15% Cronic Kidney Disease with Acute Kidney Injury Hx of CAD Hx of Stent X 1 (LAD) Hx of TAVR (unknown size) 01/2025 Diabetes Mellitus II Environmental Construction Engineer: Rigo Luciano MD (Consult, Cardioversion) / Tricia Cuellar MD Previous echo: None availble 2D Dimensions RVDd 4.2 cm IVSd 1.2 (0.7-1.1cm) LVDd 5.5 cm PWd 1.1 (0.7-1.1cm) LEFT VENTRICLE Normal LV size and wall thickness. Overall systolic function appears to be severely reduced. Overall LVEF appears to be 10-15%. RIGHT VENTRICLE Right ventricle appears to be moderate to severely dilated with reduced function. ATRIA Left atrium appears to be severely dilated. Left atrial appendage is visualized in multiple planes and appears normal without debris. AORTIC VALVE Bioprosthetic TAVR of unknown size appears to be well seated. TAVR Aortic valve was not fully evaluated due to limited exam. MITRAL VALVE Mild mitral annular calcification with grossly normal structure. Mitral valve not assessed due limited exam. TRICUSPID VALVE Tricuspid valve appears grossly normal in structure. PERICARDIUM Grossly normal pericardium. No pericardial effusion seen. CONCLUSION Normal LV size and wall thickness. Overall systolic function appears to be severely reduced. Overall LVEF appears to be 10-15%. Right ventricle appears to be moderate to severely dilated with reduced function. Left atrium appears to be severely dilated. Left atrial appendage is visualized in multiple planes and appears normal without debris. Bioprosthetic TAVR of unknown size appears to be well seated. TAVR Aortic valve was not fully evaluated due to limited exam. Mild mitral annular calcification with grossly normal structure. Mitral valve not assessed due limited exam. Tricuspid valve appears grossly normal in structure. Grossly normal pericardium. No pericardial effusion seen. Conclusion Normal LV size and wall thickness. Overall systolic function appears to be severely reduced. Overall LVEF appears to be 10-15%. Right ventricle appears to be moderate to severely dilated with reduced function. Left atrium appears to be severely dilated. Left atrial appendage is visualized in multiple planes and appears normal without debris. Bioprosthetic TAVR of unknown size appears to be well seated. TAVR Aortic valve was not fully evaluated due to limited exam. Mild mitral annular calcification with grossly normal structure. Mitral valve not assessed due limited exam. Tricuspid valve appears grossly normal in structure. Grossly normal pericardium. No pericardial effusion seen.
[2025-05-18 02:00] VITALS: BP 114/83; PULSE 73; RESP 15; TEMP 97.4; O2SAT 96
[2025-05-18 06:36] LABS: MEAN PLATELET VOLUME 8.6 FL (7.4-10.4); RED CELL DISTRIBUTION WIDTH 14.1 % (11.5-14.5)
[2025-05-18 06:58] LABS: CREATININE 4.68 MG/DL (0.60-1.10); TOTAL CARBON DIOXIDE 25.6 MMOL/L (24-32); eCRCL 16 ML/MIN; eGFR 12 ML/MIN
[2025-05-18 07:00] VITALS: BP 109/63; PULSE 67; RESP 19; TEMP 97.5; O2SAT 96
[2025-05-18] MEDS ORDERED: METO-395 PO (09:59)
[2025-05-18] MEDS ORDERED: APIX5TAB3 PO (09:59)
[2025-05-18] MEDS ORDERED: AMIO200T76 PO (09:59)
[2025-05-18] MEDS ORDERED: LEVO125T8 PO (10:00)
[2025-05-18 11:00] VITALS: BP 105/69; PULSE 69; RESP 21; TEMP 97.9; O2SAT 95
--- NOTE | 2025-05-18 13:18 | DISCHARGE SUMMARY ---
Discharge Summary Providers to CC ~ Discharge Summary Admission Diagnosis: AFib with a RVR, multiple comorbidities Hospital Course DATE OF ADMISSION: May 15, 2025 DATE OF DISCHARGE:May 18, 2025 CBC testing done on May 18, 2025 WBC 5.6 hemoglobin 11.9 hematocrit 35.2 platelet count 161. Serum chemistry done on May 18, 2025 sodium 142 potassium 3.7 creatinine 4.68 GFR 12, hemoglobin A1c 5.5, normal liver enzymes. TSH 0.10 ECHOCARDIOGRAMConclusion Normal LV size and wall thickness. Overall systolic function appears to be severely reduced. Overall LVEF appears to be 10-15%. Right ventricle appears to be moderate to severely dilated with reduced f unction. Left atrium appears to be severely dilated. Left atrial appendage is visualized in multiple planes and appears normal without debris. Bioprosthetic TAVR of unknown size appears to be well seated. TAVR Aortic valve was not fully evaluated due to limited exam. Mild mitral annular calcification with grossly normal structure. Mitral valve not assessed due limited exam. Tricuspid valve appears grossly normal in structure. Grossly normal pericardium. No pericardial effusion seen. CHEST,SINGLE VIEW-IMPRESSION: Cardiomegaly with mild pulmonary edema. Trace right pleural effusion. Discharge Diagnosis\Comment: Symptomatic Atrial Fibrillation, s/p TAVR and stentingacute on chronic systolic congestive heart failure, coronary artery disease, acute kidney injury on chronic kidney disease stage type 2 diabetes controlled, hypothyroidism Operations\Procedures: RUPALI and cardioversion Consultants: Dr. Pablo Luciano Complications: None Condition on DC: Stable New Medications: Levothyroxine Sodium (Levothyroxine Sodium) 125 Mcg Tablet 125 MCG PO DAILY for 30 Days, #30 TAB Amiodarone Hcl (Cordarone) 200 Mg Tablet 200 MG PO DAILY for 30 Days, #30 TAB Apixaban (Eliquis) 5 Mg Tablet 5 MG PO BID for 30 Days, #60 TAB Metoprolol Succinate (Metoprolol Succinate) 25 Mg Tab.sr.24h 100 MG PO BID for 30 Days, #60 TAB.SR Continued Medications: Allopurinol* (Zyloprim*) 100 Mg Tablet 1 TAB PO every other day Atorvastatin Calcium (Atorvastatin Calcium) 80 Mg Tablet 1 TAB PO HS Cholecalciferol (Vitamin D3) (Vitamin D3) 125 Mcg (5000 Unit) Tablet 1 TAB PO DAILY for 30 Days, #30 TAB 0 Refills Clopidogrel Bisulfate (Clopidogrel) 75 Mg Tablet 1 TAB PO DAILY for 30 Days, #30 TAB 0 Refills Do not stop medication unless instructed by prescriber. Cyanocobalamin (Vitamin B-12) (Vitamin B12) 2,500 Mcg Tablet 500 MCG PO DAILY for 30 Days, #30 TAB 0 Refills Ezetimibe (Ezetimibe) 10 Mg Tablet 1 TAB PO DAILY Folic Acid* (Folic Acid*) 0.4 Mg Tablet 1 TAB PO DAILY, TAB Sacubitril/Valsartan (Entresto 24 mg-26 mg Tablet) 24 Mg-26 Mg Tablet 1 TAB PO Q12H for 30 Days, #60 TAB 0 Refills Sodium Bicarbonate (Antacid) 650 Mg Tablet 1 TAB PO TID Sodium Zirconium Cyclosilicate (Lokelma) 10 Gram Powd.pack 1 PKT PO Q48H Discontinued Medications: Aspirin (Aspirin EC) 81 Mg Tablet.dr 1 TAB PO DAILY for 30 Days, #30 TAB Metoprolol Succinate (Metoprolol Succinate) 25 Mg Tab.sr.24h 2 TAB PO BID Semaglutide (Ozempic) 2 Mg/0.75 Ml (8 Mg/3 Ml) Pen.injctr 2 MG SUBCUT MONDAY Discharge Summary: The patient is a 74-year-old male who underwent TAVR and stenting in December 2024 at [facility]. He reports that at that time his ejection fraction was between 40-45%. He has developed shortness of breath three days ago. He was seen at Dr. Cuellar's office by Geni yesterday and today. She attempted to increase his metoprolol 50 mg twice daily. He had 50 mg last night and again this morning. She saw him again today and did an echocardiogram which showed an ejection fraction of 10-15%. # acute on chronic systolic congestive heart failure- Cardiology consultation requested from Dr. Pablo Luciano and Karina evaluated the patient today. Appreciate cardiology input for this patient's case, they recommended to start metoprolol succinate 100 mg t.i.d. and Entresto # atrial fibrillation with RVR-on amiodarone drip we will continue to monitor heart rate and plan to start Eliquis 5 mg twice a day Dr. Pablo Luciano did RUPALI and cardioversion yesterday and his heart rate converted back to normal sinus rhythm. Discontinued aspirin started on Eliquis 5 mg twice daily, change metoprolol XL 200 mg b.i.d. in oral amiodarone started. # coronary artery disease on Plavix aspirin and statin in outpatient setting # acute kidney injury on chronic kidney disease stage 4- patient follows with Dr. Dominguez in outpatient setting. Nephrology consultation requested from Dr. Elliott who evaluated the patient during hospitalization, we will follow the recommendation. Not much improvement in kidney function in labs. # type 2 diabetes- hemoglobin A1c ordered, on Ozempic in outpatient setting which we are going to hold. Started on hypo and hyperglycemic protocol # hypothyroidism-on levothyroxine TSH 0.10. Patient needs lower dose of levothyroxine and repeat free TSH testing needed in 6-8 weeks in outpatient setting.Levothyroxine restarted on lower dose # Code status discussed with the patient patient wishes full code Patient is feeling better he has been afebrile and getting discharged home in stable condition. Patient is seen and examined on the day of discharge. All labs, diagnostic workup and discharge plan discussed with patient and family members in detail before his discharge. All questions and queries answered to the best of my professional medical knowledge. I heard patient's concerns and address appropriately. Patient was cleared by Physical therapy team for home discharge . cleaning manager involved in patient's discharge plan. Discharge instructions provided to the patient. please Follow-up with Dr Cuellar , Dr Dominguez ,PCP in outpatient setting in 1-2 weeks. Continue to monitor blood pressure and heart rate daily in outpatient setting. Discuss restarting of Ozempic with Dr. Dominguez and PCP in outpatient setting hemoglobin A1c 5.5. Continue to monitor renal function closely with Nephrology specialist and PCP. Repeat TSH and free T4 in six weeks further dose adjustment for levothyroxine per PCP. Activity as tolerated. General-patient not in any acute distress, alert awake oriented, chronically ill-appearing HEENT-atraumatic normocephalic, neck supple without elevated JVD, no thyromegaly or carotid bruit. No lymphadenopathy bilaterally. Eyes-no icterus or pallor seen in eyes Chest-decreased breath sounds to auscultation bilaterally over 2/3 of the lung, we will do listen lung sounds over upper lungs. breathing nonlabored no tachypnea, no wheezing, no crepitation, no crackles. Heart-S1-S2 normal, regular heart rate no murmur Abdomen bowel sounds positive on auscultation, soft nondistended nontender no guarding, no rigidity Skin no active skin rash Neurology-grossly intact, nonfocal alert awake oriented Extremity- trace pedal edema able to move all 4 extremities Psychiatry - patient is not confused or agitated cooperated during physical examination *Problems/Diagnosis: (1) Shortness of breath Status: Acute Total Time Spent on D/C: > 30 Minutes Date of Service: May 18, 2025 Billing Provider: KEENA ROBLES MD Common Visit Codes: 14401-LMD/OBS DISCH DAY >30min KEENA ROBLES MD May 18, 2025 13:16
== END 2025-05-18 11:50 | disposition home or self-care (01) | DRG 308 ==
LOC: ER 08:19 → ED HOLD 10:31 → PCU 3S 18:00
PROVIDERS: ADMIT Internal Medicine; ATTEND Internal Medicine
PROC: 5A2204Z Restoration of Cardiac Rhythm, Single (ICD-10-PCS; principal; 2025-05-17)
PROC: B24BZZ4 Ultrasonography of Heart with Aorta, Transesophageal (ICD-10-PCS; 2025-05-17)
DX: I48.91 Unspecified atrial fibrillation (principal); I50.23 Acute on chronic systolic (congestive) heart failure; N17.9 Acute kidney failure, unspecified; I13.0 Hypertensive heart and chronic kidney disease with heart failure and stage 1 through stage 4 chronic kidney disease, or unspecified chronic kidney disease; N18.4 Chronic kidney disease, stage 4 (severe); I25.10 Atherosclerotic heart disease of native coronary artery without angina pectoris; I35.0 Nonrheumatic aortic (valve) stenosis; E11.22 Type 2 diabetes mellitus with diabetic chronic kidney disease; E78.5 Hyperlipidemia, unspecified; E03.9 Hypothyroidism, unspecified; B19.20 Unspecified viral hepatitis C without hepatic coma; I48.92 Unspecified atrial flutter; Z79.02 Long term (current) use of antithrombotics/antiplatelets; Z79.82 Long term (current) use of aspirin; Z95.5 Presence of coronary angioplasty implant and graft; Z95.2 Presence of prosthetic heart valve; Z79.01 Long term (current) use of anticoagulants; Z79.899 Other long term (current) drug therapy
CPT/HCPCS: 36415; 71045; 80053; 81001; 82570; 82948; 83036; 83735; 83880; 83935; 84133; 84156; 84300; 84443; 84484; 84540; 85025; 87081; 87811; 93005; 93312; 93325; 96365; 96367; 96375; 96376; 97116; 97161; 97530; 99285; A4615; A4620; G0378; J0282; J1644; J1815; J1938; J2250; J3010; J3490; J7030